=== PATIENT | female | born 1985 | race Caucasian/White ===

== ENCOUNTER 2017-11-18 19:36 | Emergency (ER) | payer MEDICAID ==
[2017-11-18] MEDS: LORazepam 2 MG/ML SDV IM ONE (19:48)
[2017-11-18] MEDS: Ondansetron 4 MG Tab.DIS PO ONE (20:34)
[2017-11-18] MEDS ORDERED: LORazepam 0.5 MG Tab ONE (21:00)
== END 2017-11-18 21:37 | disposition home or self-care (01) ==
LOC: LB.ED 19:36
DX: F41.9 Anxiety disorder, unspecified (principal); R06.4 Hyperventilation; Z88.8 Allergy status to other drugs, medicaments and biological substances
CPT/HCPCS: 36415; 80053; 83036; 84484; 85025; 93005; 99285-25; A9270-GY

== ENCOUNTER 2018-04-25 03:18 | Emergency (ER) | payer MEDICAID ==
[2018-04-25] MEDS: Tetracaine 0.5% Ophth Soln 15 ML Bottle EYERT ONE (03:45)
[2018-04-25] MEDS ORDERED: Gentamicin 0.3% Ophth Soln 5 ML Bottle ONE (03:45)
--- NOTE | 2018-04-25 03:56 | EDM.PDOC ---
ED HPI GENERAL MEDICAL PROBLEM - General Chief Complaint: Eye Problems Stated Complaint: RIGHT EYE PAIN Time Seen by Provider: 04/25/18 03:40 Source of Information: Reports: Patient, RN History Limitations: Reports: No Limitations - History of Present Illness INITIAL COMMENTS - FREE TEXT/NARRATIVE: 33 yr female presents with right eye pain. States her child scratched the eye with her fingernail and it has been burning and unable to sleep with this pain. States allergy to metformin. 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: Endocrine/Metabolic History: Reports: Other (See Below) Other Endocrine/Metabolic History: Gestational Diabetes - Past Surgical History GI Surgical History: Reports: Cholecystectomy Female Surgical History: Reports: Section, Tubal Ligation, Other ( See Below) Other Female Surgeries/Procedures: x3 Social & Family History - Family History Family Medical History: Noncontributory - Caffeine Use Caffeine Use: Reports: None ED ROS GENERAL - Review of Systems Review Of Systems: See Below Constitutional: Reports: No Symptoms HEENT: Reports: Eye Pain, Other (sensitive to light, reports blurry vision to both eyes and reports due for eye exam.). Denies: Eye Discharge, Glasses, Vision Change Respiratory: Reports: No Symptoms Cardiovascular: Reports: No Symptoms ED EXAM GENERAL W FULL EYE - Physical Exam Exam: See Below Exam Limited By: No Limitations General Appearance: Alert, No Apparent Distress Eye Exam: Right Eye: Conjunctival Injection, Bilateral Eye: PERRL (No foreign object to eye) Eyelids: Bilateral: Normal Appearance Conjunctiva & Sclera: Bilateral: Normal Appearance Cornea Exam: Bilateral: Normal Appearance Extraocular Movements: Bilateral: Intact Pupils: Normal Accommodation Pupillary Size: Bilateral: 4 mm Pupillary Reaction: Bilateral: Brisk Respiratory/Chest: No Respiratory Distress Neurological: Alert, Oriented, Normal Cognition Psychiatric: Normal Affect Skin Exam: Warm, Dry, Normal Color Course - Vital Signs Last Recorded V/S: Last Vital Signs Temp 98.0 F 04/25/18 03:28 Pulse 92 04/25/18 03:28 Resp 20 04/25/18 03:28 BP 133/83 04/25/18 03:28 Pulse Ox 99 04/25/18 03:28 - Re-Assessments/Exams Free Text/Narrative Re-Assessment/Exam: 04/25/18 03:56 Eye examined, pt moving eye well, some blurry vision reported. Conjunctiva irritated and red. No exudate to eye. Tetracaine applied to eye and states comfort with eye drop after administration. Will start Gentamycin eye drop 2 drop every 4 hour while awake X 3 days to prevent infection. May use Tylenol or Ibuprofen for pain or apply cool wash cloth to closed eye. Departure - Departure Time of Disposition: 04:00 Disposition: Home, Self-Care 01 Condition: Good Clinical Impression: Conjunctivitis - Discharge Information *PRESCRIPTION DRUG MONITORING PROGRAM REVIEWED*: Not Applicable *COPY OF PRESCRIPTION DRUG MONITORING REPORT IN PATIENT JORGE: Not Applicable ( Return to clinic or eye care provider if pain continues or vision changes.) Instructions: Corneal Abrasion Forms: ED Department Discharge
[2018-04-25] MEDS: Tetracaine 0.5% 2 ML Bottle EYERT ONE (03:59)
== END 2018-04-25 04:07 | disposition home or self-care (01) ==
LOC: LB.ED 03:18
DX: H10.9 Unspecified conjunctivitis (principal); Z88.8 Allergy status to other drugs, medicaments and biological substances
CPT/HCPCS: 99283; A9270-GY

== ENCOUNTER 2021-02-16 11:37 | Emergency (ER) | payer OTHER, BC ==
--- NOTE | 2021-02-16 12:36 | EDM.PDOC ---
ED HPI GENERAL MEDICAL PROBLEM - General Chief Complaint: Back Pain or Injury Stated Complaint: W/C TWISTED BACK AND HEARD POP Time Seen by Provider: 02/16/21 12:15 Source of Information: Reports: Patient History Limitations: Reports: No Limitations - History of Present Illness INITIAL COMMENTS - FREE TEXT/NARRATIVE: patient presented to the ER with a c/o lower back pain. sudden onset. occurred after trying to lift a heavy object at work. shooting pain from the lower back radiating to the RLE. no numbness or tingling,, but it's hard to move around or lift her leg up. occurred around 5 hrs ago. 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: Endocrine/Metabolic History: Reports: Other (See Below) Other Endocrine/Metabolic History: Gestational Diabetes - Past Surgical History GI Surgical History: Reports: Cholecystectomy Female Surgical History: Reports: Section, Tubal Ligation, Other (See Below) Other Female Surgeries/Procedures: x3 Social & Family History - Family History Family Medical History: No Pertinent Family History - Caffeine Use Caffeine Use: Reports: None ED ROS GENERAL - Review of Systems Review Of Systems: See Below Constitutional: Reports: No Symptoms HEENT: Reports: No Symptoms Respiratory: Reports: No Symptoms Cardiovascular: Reports: No Symptoms GI/Abdominal: Reports: No Symptoms Musculoskeletal: Reports: Back Pain Skin: Reports: No Symptoms Neurological: Reports: No Symptoms ED EXAM,LOWER BACK PAIN/INJURY - Physical Exam Exam: See Below Exam Limited By: No Limitations General Appearance: Alert, WD/WN, No Apparent Distress Eye Exam: Bilateral Eye: PERRL Respiratory/Chest: No Respiratory Distress, Lungs Clear Cardiovascular: Normal Peripheral Pulses, Regular Rate, Rhythm Neurological: Alert, Normal Mood/Affect, Oriented x 3, Abnormal Gait, Straight Leg Raise (R) Course - Orders/Labs/Meds Orders: Active Orders 24 hr Category Date Time Status Lumbar Spine 2 or 3V [CR] Stat Exams 02/16/21 13:00 Taken Meds: Medications Discontinued Medications Generic Name Dose Route Start Last Admin Trade Name Roberta PRN Reason Stop Dose Admin Ketorolac Tromethamine 60 mg 02/16/21 12:32 02/16/21 12:55 Ketorolac 60 Mg/2 Ml Sdv IM 02/16/21 12:33 60 mg ONETIME ONE Administration Ketorolac Tromethamine Confirm 02/16/21 13:03 02/16/21 13:02 Ketorolac 60 Mg/2 Ml Sdv Administered 02/16/21 13:04 Not Given Dose 60 mg .ROUTE .STK-MED ONE Orphenadrine Citrate 60 mg 02/16/21 12:32 02/16/21 13:00 Orphenadrine 60 Mg/2 Ml Inj IM 02/16/21 12:33 60 mg ONETIME ONE Administration - Re-Assessments/Exams Free Text/Narrative Re-Assessment/Exam: IM toradol 60mg and IM norflex 60mg were ordered Lumbar spine x rays - no acute fracture or dislocation seen 02/16/21 13:12 feels better after the injection will d/c home on Flexeril and Toradol PO Departure - Departure Time of Disposition: 13:13 Disposition: Home, Self-Care 01 Condition: Good Clinical Impression: Lumbar spine strain Qualifiers: Encounter type: initial encounter Qualified Code(s): S39.012A - Strain of muscle, fascia and tendon of lower back, initial encounter Sciatica Qualifiers: Laterality: right Qualified Code(s): M54.31 - Sciatica, right side - Discharge Information *PRESCRIPTION DRUG MONITORING PROGRAM REVIEWED*: Not Applicable *COPY OF PRESCRIPTION DRUG MONITORING REPORT IN PATIENT JORGE: Not Applicable Instructions: Lumbosacral Strain, Sciatica Rehab-SportsMed, Sciatica Referrals: Fara Bowman NP [Primary Care Provider] - Forms: ED Department Discharge - Problem List & Annotations (1) Lumbar spine strain SNOMED Code(s): 725771737 Code(s): S39.012A - STRAIN OF MUSCLE, FASCIA AND TENDON OF LOWER BACK, INIT Status: Acute Priority: Low Current Visit: Yes Qualifiers: Encounter type: initial encounter Qualified Code(s): S39.012A - Strain of muscle, fascia and tendon of lower back, initial encounter (2) Sciatica SNOMED Code(s): 47891907 Code(s): M54.30 - SCIATICA, UNSPECIFIED SIDE Status: Acute Priority: Low Current Visit: Yes Qualifiers: Laterality: right Qualified Code(s): M54.31 - Sciatica, right side - Problem List Review Problem List Initiated/Reviewed/Updated: Yes - My Orders Last 24 Hours: My Active Orders 02/16/21 13:00 Lumbar Spine 2 or 3V [CR] Stat - Assessment/Plan Last 24 Hours: My Active Orders 02/16/21 13:00 Lumbar Spine 2 or 3V [CR] Stat Plan: - start taking muscle relaxants and pain medications as prescribed - follow up with chiropractor for further management - recommend to make an appointment with your PCP in 1-2 weeks if symptoms don't improve - avoid lifting more than 20 lbs objects at work - return to the ER if symptoms got worse or any concerns
[2021-02-16] MEDS: Ketorolac 60 MG/2 ML SDV IM ONE (12:55)
[2021-02-16] MEDS: Orphenadrine 60 MG/2 ML Inj IM ONE (13:00)
[2021-02-16] MEDS: Ketorolac 60 MG/2 ML SDV ONE (13:02)
--- NOTE | 2021-02-16 15:45 | CR ---
DATE OF SERVICE: 02/16/2021 CLINICAL DATA: Pulled her back - sciatica. LUMBAR SPINE: No priors. There is mild right convexity scoliosis of the mid lumbar spine. The vertebral bodies are of average height. No acute fracture or dislocation. No lytic or blastic bone lesions. There is minimal degenerative disc disease at multiple levels. No other significant findings. [id number] [facility]
== END 2021-02-16 13:25 | disposition home or self-care (01) ==
LOC: LB.ED 11:37
DX: S39.012A Strain of muscle, fascia and tendon of lower back, initial encounter (principal); M54.31 Sciatica, right side; Z88.8 Allergy status to other drugs, medicaments and biological substances; X50.0XXA Overexertion from strenuous movement or load, initial encounter; Y92.89 Other specified places as the place of occurrence of the external cause; Y99.0 Civilian activity done for income or pay
CPT/HCPCS: 72100; 96372; 99283-25; J1885; J2360

== ENCOUNTER 2022-01-13 22:45 | Emergency (ER) | payer BC, MEDICAID ==
[2022-01-13] MEDS: Sodium Chloride 0.9% 1,000 ML IV SCH ×2 (23:12→23:58)
[2022-01-13] MEDS ORDERED: cefTRIAXone 1 GM in Sodium Chloride 0.9% 50 ML IV ONE (23:15)
[2022-01-13] MEDS ORDERED: Potassium Chloride 20 MEQ Tab.ER PO ONE (23:37)
[2022-01-13] MEDS ORDERED: Ketorolac 60 MG/2 ML SDV IVPUSH ONE (23:39)
[2022-01-14] MEDS ORDERED: Benzonatate 100 MG Cap PO ONE (00:07)
== END 2022-01-14 00:40 | disposition home or self-care (01) ==
LOC: LB.ED 22:45
DX: H66.91 Otitis media, unspecified, right ear (principal); J02.9 Acute pharyngitis, unspecified; E87.6 Hypokalemia; Z20.822 Contact with and (suspected) exposure to COVID-19; Z86.16 Personal history of COVID-19
CPT/HCPCS: 36415; 71045; 80053; 85025; 87635; 96374; 96375; 99283; A9270; J0696; J1885; J3490; J7030; U0002

== ENCOUNTER 2022-03-26 16:09 | Emergency (ER) | payer BC, MEDICAID ==
[2022-03-26] MEDS ORDERED: LORazepam 1 MG Tab PO ONE (16:11)
== END 2022-03-26 18:08 | disposition home or self-care (01) ==
LOC: LB.ED 16:09
DX: F43.20 Adjustment disorder, unspecified (principal); Z86.16 Personal history of COVID-19
CPT/HCPCS: 99284; 99285; A9270-GY

== ENCOUNTER 2022-04-15 10:58 | Emergency (ER) | payer BC, MEDICAID | END 2022-04-15 16:02 | LOC: LB.ED 10:58 | DX: R45.851 Suicidal ideations (principal); Z86.16 Personal history of COVID-19; Z20.822 Contact with and (suspected) exposure to COVID-19 | CPT/HCPCS: 36415; 80053; 80143; 80307; 81001; 84443; 85025; 99285; U0002 ==

== ENCOUNTER 2024-07-30 15:38 | Emergency (ER) | payer OTHER, MEDICAID ==
[2024-07-30 16:40] LABS: HEMOGLOBIN 14.4 g/dL (11.5-16.5); MEAN CORPUSCULAR HEMOGLOBIN 28.5 pg (27.0-32.0); MEAN CORPUSCULAR HGB CONC 34.3 g/dL (31.0-35.0); MEAN PLATELET VOLUME 11.4 fL (6.0-10.0); RED BLOOD CELL COUNT 5.05 M/uL (3.80-5.80); RED CELL DISTRIBUTION WIDTH 12.9 % (11.0-16.0); WHITE BLOOD CELL COUNT,WBC 9.8 K/uL (4.0-11.0)
[2024-07-30 16:56] LABS: INR 1.1 (1.0-3.5)
[2024-07-30 16:58] LABS: PROTHROMBIN TIME 11.5 sec (9.0-11.5)
[2024-07-30 17:05] LABS: A/G RATIO 1.1 (0.8-2.0); ALBUMIN 4.2 g/dL (3.4-5.0); ANION GAP 16.3 mmol/L (5.0-15.0); BILIRUBIN TOTAL 0.5 mg/dL (0.0-1.0); BUN/CREATININE RATIO 14.1 (6-25); CALCIUM 9.4 mg/dL (8.5-10.1); CARBON DIOXIDE,CO2 21.3 mmol/L (21.0-32.0); CREATININE 0.78 mg/dL (0.55-1.02); EST CRCL DRUG DOSING (CG) 69.55 mL/min; POTASSIUM,K 3.6 mmol/L (3.5-5.1); PROTEIN TOTAL,TP 7.9 g/dL (6.4-8.2)
[2024-07-30 17:41] LABS: APPEARANCE,URINE CLEAR (CLEAR); COLOR,URINE YELLOW
[2024-07-30 17:42] LABS: BILIRUBIN,URINE NEGATIVE (NEGATIVE); GLUCOSE,URINE NEGATIVE (NEGATIVE); KETONES,URINE 40 mg/dL (NEGATIVE); LEUKOCYTE ESTERASE,URINE NEGATIVE (NEGATIVE); NITRITE,URINE NEGATIVE (NEGATIVE); OCCULT BLOOD,URINE NEGATIVE (NEGATIVE); PH,URINE 5.5 (5.0-8.0); PROTEIN,URINE 30 mg/dL (NEGATIVE); UROBILINOGEN,URINE 0.2 E.U./dL (0.2-1.0)
[2024-07-30 17:43] LABS: RBC,URINE 0-5 /HPF; SQUAMOUS EPITHELIAL CELLS,UR OCCASIONAL /HPF; WBC,URINE NOT SEEN /HPF
== END 2024-07-30 18:10 | disposition home or self-care (01) ==
LOC: LB.ED 15:38
DX: K92.1 Melena (principal); K57.90 Diverticulosis of intestine, part unspecified, without perforation or abscess without bleeding; I10 Essential (primary) hypertension; E11.9 Type 2 diabetes mellitus without complications; Z90.49 Acquired absence of other specified parts of digestive tract; Z90.710 Acquired absence of both cervix and uterus; Z79.899 Other long term (current) drug therapy; Z88.8 Allergy status to other drugs, medicaments and biological substances
CPT/HCPCS: 36415; 74176; 80053; 81001; 85027; 85610; 86140; 99284

== ENCOUNTER 2025-04-10 12:35 | Emergency (ER) | payer BC ==
[2025-04-10] MEDS ORDERED: Sodium Chloride 0.9% 10 ML Syringe FLUSH PRN (13:30)
[2025-04-10 13:34] LABS: BASOPHILS ABSOLUTE AUTO 0.03 K/uL (0.02-0.10); BASOPHILS PERCENT AUTO 0.3 % (0.0-0.5); EOSINOPHILS ABSOLUTE AUTO 0.19 K/uL (0.04-0.40); EOSINOPHILS PERCENT AUTO 2.1 % (1.0-5.0); LYMPHOCYTES ABSOLUTE AUTO 2.56 K/uL (1.50-4.00); LYMPHOCYTES PERCENT AUTO 28.3 % (20.0-40.0); MEAN PLATELET VOLUME 11.0 fL (6.0-10.0); MONOCYTES ABSOLUTE AUTO 0.42 K/uL (0.20-0.80); MONOCYTES PERCENT AUTO 4.6 % (3.0-10.0); NEUTROPHILS ABSOLUTE AUTO 5.84 K/uL (2.00-7.50); NEUTROPHILS PERCENT AUTO 64.7 % (45.0-70.0); PLATELET COUNT,PLT 204 K/uL (150-500); RED BLOOD CELL COUNT 4.90 M/uL (3.80-5.80); RED CELL DISTRIBUTION WIDTH 13.1 % (11.0-16.0); WHITE BLOOD CELL COUNT,WBC 9.0 K/uL (4.0-11.0)
[2025-04-10 13:52] LABS: INR 1.0 (1.0-3.5); PTT,PARTIAL THROMBOPLSTIN TIME 28.9 SECONDS (24.4-33.2)
[2025-04-10 13:54] LABS: A/G RATIO 1.3 (0.8-2.0); ALANINE AMINOTRANSFERASE,ALT 43.0 U/L (12-78); ASPARTATE AMNIOTRANSFERASE,AST 19.0 U/L (15-37); BILIRUBIN TOTAL 0.7 mg/dL (0.0-1.0); BLOOD UREA NITROGEN,BUN 12.0 mg/dL (8-26); CARBON DIOXIDE,CO2 22.4 mmol/L (21.0-32.0); CHLORIDE,CL 109.0 mmol/L (98-107); CREATININE 0.57 mg/dL (0.55-1.02); EST CRCL DRUG DOSING (CG) 94.24 mL/min; ESTIMATED GFR 118.0 mL/min (>60); GLUCOSE RANDOM 118.0 mg/dL (74-100); POTASSIUM,K 4.0 mmol/L (3.5-5.1); PROTEIN TOTAL,TP 7.2 g/dL (6.4-8.2); SODIUM,NA 142.0 mmol/L (136-145)
== END 2025-04-10 14:25 | disposition home or self-care (01) ==
LOC: LB.ED 12:35
DX: M54.50 Low back pain, unspecified (principal); M25.551 Pain in right hip; I10 Essential (primary) hypertension; E11.9 Type 2 diabetes mellitus without complications; Z88.8 Allergy status to other drugs, medicaments and biological substances; Z79.899 Other long term (current) drug therapy; Z90.49 Acquired absence of other specified parts of digestive tract; W18.39XA Other fall on same level, initial encounter; Y93.89 Activity, other specified
CPT/HCPCS: 36415; 72100; 73502; 80053; 85025; 85610; 85730; 99283; A9270; J7030

== ENCOUNTER 2025-06-10 08:05 | Emergency (ER) | payer BC | END 2025-06-10 09:20 | disposition home or self-care (01) | LOC: LB.ED 08:05 | DX: M54.16 Radiculopathy, lumbar region (principal); I10 Essential (primary) hypertension; E11.9 Type 2 diabetes mellitus without complications; Z79.899 Other long term (current) drug therapy; Z88.8 Allergy status to other drugs, medicaments and biological substances; Z90.49 Acquired absence of other specified parts of digestive tract; Z90.710 Acquired absence of both cervix and uterus | CPT/HCPCS: 99283 ==